=== PATIENT | male | born 1965 | race Caucasian/White ===

== ENCOUNTER 2023-09-02 00:51 | Day surgery (SDC) | payer OTHER, SELFPAY ==
[2023-08-18 15:40] VITALS: BMI 36.9
--- NOTE | 2023-08-31 09:13 | SUR.PREOP ---
Patient called regarding upcoming procedure. Reviewed preop instructions, appointment times, and procedure prep.
--- NOTE | 2023-09-01 16:13 | PM.HPGS ---
History of Present Illness History of Present Illness Consent: Risks, benefits, and alternatives have been discussed and questions answered. Patient agrees to proceed with procedure. Chief complaint: neoplasm screening Narrative: Richie Lucas is a 58 year old male Who was referred for colon cancer screening. Review of Systems Review of Systems: All systems reviewed & are unremarkable except as noted in HPI and below PMFSH Social History Social History Smoking status: Light tobacco smoker Tobacco type: cigars Alcohol intake: current Drinks per week: 18 Alcohol use details: BEERS-WINE Substance use: never Substance use type: does not use Living arrangements: with family Spiritual care concerns: No Meds Home Medications and Allergies Home Medications Medication Instructions Recorded Confirmed Type lisinopril 40 mg tablet 40 mg PO DAILY 08/18/23 08/18/23 History multivitamin 1 tablet PO DAILY 08/18/23 08/18/23 History rosuvastatin 5 mg tablet 5 mg PO DAILY 08/18/23 08/18/23 History tamsulosin 0.4 mg capsule 0.4 mg PO DAILY 08/18/23 08/18/23 History turmeric 400 mg capsule 400 mg PO DAILY 08/18/23 08/18/23 History Allergies Allergy/AdvReac Type Severity Reaction Status Date / Time No Known Allergies Allergy Verified 09/02/23 12:52 Exam Resp: Auscultation: clear to auscultation bilaterally Cardio: Rate: regular rate Rhythm: regular rhythm GI: GI Palp: Yes Soft to palpation and No Tenderness to palpation present (GI) Assessment and Plan Assessment and plan (1) Colon cancer screening: Code(s): Z12.11 - Encounter for screening for malignant neoplasm of colon Status: Acute Assessment and Plan: Colonoscopy with possible biopsy or polypectomy or cautery or injection of substances.
[2023-09-02 12:54] VITALS: BP 120/97; PULSE 77; RESP 18; TEMP 36.2; O2SAT 100
[2023-09-02] MEDS: LACTATED RINGERS 1,000 ML 150 ML IV CONT (13:09)
--- NOTE | 2023-09-02 13:18 | P.PNAN_ITS ---
Anes - Initial Pre Proc Eval Procedure: Operation Date: 09/02/23 14:00 Proposed Procedures p Screening Colonoscopy - Abilio Maki MD Date/Time: 09/02/23 13:18 Surgeon: Abilio Maki MD Pre Op Diagnosis: neoplasm screening Patient Data Age: 58 Gender: M Height: 1.75 m Weight: 116.2 kg Last Vital Signs Temp 36.2 C L 09/02/23 12:54 Pulse 77 09/02/23 12:54 Resp 18 09/02/23 12:54 BP 120/97 H 09/02/23 12:54 Pulse Ox 100 09/02/23 12:54 O2 Del Method Room Air 09/02/23 12:54 Allergies Allergy/AdvReac Type Severity Reaction Status Date / Time No Known Allergies Allergy Verified 09/02/23 12:52 Home Medications Medication Instructions Recorded Confirmed Type lisinopril 40 mg tablet 40 mg PO DAILY 08/18/23 08/18/23 History multivitamin 1 tablet PO DAILY 08/18/23 08/18/23 History rosuvastatin 5 mg tablet 5 mg PO DAILY 08/18/23 08/18/23 History tamsulosin 0.4 mg capsule 0.4 mg PO DAILY 08/18/23 08/18/23 History turmeric 400 mg capsule 400 mg PO DAILY 08/18/23 08/18/23 History Patient hx anesthesia problems: none Family hx anesthesia problems: none Results Review: All pre-operative results and documents have been reviewed as part of the pre- operative evaluation. [facility] Social History Social History Smoking status: Light tobacco smoker Tobacco type: cigars Alcohol intake: current Drinks per week: 18 Alcohol use details: BEERS-WINE Substance use: never Substance use type: does not use Living arrangements: with family Spiritual care concerns: No Anes - Eval Final PreProcedure Day of Procedure 09/02/23 13:18 Patient weight: obese Heart: regular rate and rhythm Lungs: decreased breath sounds Airway: Mallampati scale class II Neurological: alert and oriented Last oral intake: >/= 8 hours ASA classification: III Emergent: no Anesthetic plan: proceed Anesthesia type and monitoring: general GIVS and standard monitoring Results Review: All pre-operative results and documents have been reviewed as part of the pre- operative evaluation. Informed Consent: The patient's anesthetic plan and its attendant risks and benefits were discussed with the patient/family/POA. Questions were solicited and answers provided to the satisfaction of the patient/family/POA.
[2023-09-02 14:17] VITALS: BP 108/66; PULSE 71; RESP 17; O2SAT 100
[2023-09-02 14:27] VITALS: BP 108/77; PULSE 68; RESP 20; O2SAT 100
[2023-09-02 14:37] VITALS: BP 109/74; PULSE 61; RESP 13; O2SAT 100
== END 2023-09-02 14:49 | disposition home or self-care (01) ==
PROVIDERS: PCP Family Medicine; Visit Provider Internal Medicine Gastroenterology
PROC: 0DJD8ZZ Inspection of Lower Intestinal Tract, Via Natural or Artificial Opening Endoscopic (ICD-10-PCS; CPT 45378; principal; 2023-09-02 14:00)
DX: Z12.11 Encounter for screening for malignant neoplasm of colon (principal); F17.290 Nicotine dependence, other tobacco product, uncomplicated; E66.9 Obesity, unspecified; Z68.37 Body mass index [BMI] 37.0-37.9, adult
CPT/HCPCS: 45378; J2001; J2704; J7120